=== PATIENT | male | born 1960 | race Caucasian/White ===

== ENCOUNTER → 2018-10-23 | Outpatient (CLI) | payer OTHER ==
--- NOTE | 2018-10-23 16:04 | RAD ---
Testicular sonogram with duplex evaluation Clinical indications: Testicular mass. FINDINGS: Duplex sonography of the scrotum and both testicles was performed including grayscale evaluation and color flow and waveform spectral analysis. The longitudinal and AP and transverse dimensions of the right testicle are 5.0 cm and 3.0 cm and 4.0 cm respectively. The longitudinal AP and transverse dimensions of the left testicle are 4.5 cm and 3.2 cm and 3.4 cm respectively. No testicular mass is seen. Symmetric color Doppler flow is seen and therefore no testicular torsion is evident. The epididymis on the right side is normal. Small hydrocele is seen on the right side.. There is a large cyst of the head of the epididymis on the left side measuring up to 7.4 cm in greatest dimension which accounts for a testicular mass. Small hydrocele is seen on the left side. IMPRESSION: Left testicular mass represents a 7.4 cm epididymal cyst. Electronically signed by: Albert Gonsales MD (10/23/2018 4:00 PM) [id number]
--- NOTE | 2018-10-24 17:42 | RAD ---
CT of the chest without contrast, 10/23/2018: HISTORY: Tobacco use, screening, family history of aortic aneurysm Noncontrast scans were obtained. There is minimal pleural thickening over the apices with minimal underlying linear opacities compatible with scarring. No pulmonary mass or significant nodularity is seen. There is no evidence of pleural fluid. A small low density structure is seen along the posterior wall of the left main bronchus as best visualized on axial image 245 of series #5. This probably represents a bit of mucoid debris. A small polyp cannot be excluded. The central bronchi are otherwise unremarkable. There is mild calcific plaquing of the thoracic aorta without evidence of aneurysm. Moderate scattered coronary artery calcifications are present. The heart is not enlarged. No mediastinal adenopathy is evident. Several old healed rib fractures are present on the upper left. IMPRESSION: 1. Small mural density in the left main bronchus which probably represents mucoid debris. A polyp cannot be excluded. CT follow-up is suggested. 2. No parenchymal mass or significant infiltrate. 3. Moderate coronary artery calcifications. PQRS Compliance Statement: One or more of the following individualized dose reduction techniques were utilized for this examination: 1. Automated exposure control 2. Adjustment of the mA and/or kV according to patient size 3. Use of iterative reconstruction technique Electronically signed by: Jack Ramos MD (10/24/2018 5:39 PM) [facility]
== END | disposition home or self-care (01) ==
LOC: CT 09:06
PROVIDERS: ATTEND Family Medicine
DX: N43.2 Other hydrocele (principal); N50.3 Cyst of epididymis; I25.10 Atherosclerotic heart disease of native coronary artery without angina pectoris; Z87.891 Personal history of nicotine dependence; Z82.49 Family history of ischemic heart disease and other diseases of the circulatory system
CPT/HCPCS: 71250; 76870

== ENCOUNTER 2022-04-05 13:32 | Emergency (ER) | payer OTHER ==
[~2022-04-05] VITALS: Ht 175.3 cm; Wt 77.5 kg
[2022-04-05 14:18] VITALS: BP 127/75
--- NOTE | 2022-04-05 14:34 | PHYS DOC ---
Past History Past Surgical History: Other Additional Past Surgical Histo: hernia repair; back sx General Adult EDM: Chief Complaint: PAIN ON URINATION HPI: HPI: 61-year-old male presents with urinary retention and dysuria. He has had the symptoms on and off for some time. They have been persistent in the last 2 days. Patient also had what looked like a small amount of pus come out of the end of his penis. He does not have concern for STD. He is sexually active with his . He denies fever or chills. He has had kidney stones in the past but the pain was much more intense than today. He also does not have flank pain. Review of Systems: Review of Systems: Constitutional: Denies fever or chills Eyes: Denies change in visual acuity HENT: Denies nasal congestion or sore throat Respiratory: Denies cough or shortness of breath Cardiovascular: Denies chest pain or edema GI: Denies abdominal pain, nausea, vomiting, bloody stools or diarrhea : Dysuria, urinary frequency, urinary retention. Musculoskeletal: Denies back pain or joint pain Integument: Denies rash Neurologic: Denies headache, focal weakness or sensory changes Endocrine: Denies polyuria or polydipsia Lymphatic: Denies swollen glands Psychiatric: Denies depression or anxiety Allergies: Allergies: Allergies Coded Allergies Type Severity Reaction Last Updated Verified No Known Drug Allergies 04/05/22 No Physical Exam: PE: Constitutional: Well developed, well nourished, no acute distress, non-toxic appearance. [] HENT: Normocephalic, atraumatic, bilateral external ears normal, oropharynx moist, no oral exudates, nose normal. [] Eyes: PERRLA, EOMI, conjunctiva normal, no discharge. [] Neck: Normal range of motion, no tenderness, supple, no stridor. [] Cardiovascular: Heart rate regular rhythm, no murmur [] Lungs & Thorax: Bilateral breath sounds clear to auscultation [] Abdomen: Bowel sounds normal, soft, no tenderness, no masses, no pulsatile masses. [] Skin: Warm, dry, no erythema, no rash. [] Back: No tenderness, no CVA tenderness. [] Extremities: No tenderness, no cyanosis, no clubbing, ROM intact, no edema. [] Neurologic: Alert and oriented X 3, normal motor function, normal sensory function, no focal deficits noted. [] Psychologic: Affect normal, judgement normal, mood normal. [] Current Patient Data: Vital Signs: Vital Signs Date Time Temp Pulse Resp B/P (MAP) Pulse Ox O2 Delivery O2 Flow Rate FiO2 04/05/22 14:18 97.8 86 18 127/75 (92) 99 Room Air EKG: EKG: [] Radiology/Procedures: Radiology/Procedures: [] Heart Score: C/O Chest Pain: N/A Risk Factors: Risk Factors: DM, Current or recent (<one month) smoker, HTN, HLP, family history of CAD, obesity. Risk Scores: Score 0 - 3: 2.5% MACE over next 6 weeks - Discharge Home Score 4 - 6: 20.3% MACE over next 6 weeks - Admit for Clinical Observation Score 7 - 10: 72.7% MACE over next 6 weeks - Early Invasive Strategies Course & Med Decision Making: Course & Med Decision Making Pertinent Labs and Imaging studies reviewed. (See chart for details) The patient's urinalysis is negative for infection. He likely has an enlarged prostate. I will place him on Flomax. GC chlamydia is pending. He will follow-up with his primary physician. He is stable for discharge at this time. [] Dragon Disclaimer: Dragon Disclaimer: This electronic medical record was generated, in whole or in part, using a voice recognition dictation system. Departure Departure: Impression: Primary Impression: Urinary retention Additional Impression: Dysuria Disposition: HOME / SELF CARE / HOMELESS Condition: STABLE Referrals: BEV LUNA MD (PCP) Patient Instructions: Urinary Retention, Acute, Male, [id number] Tamsulosin Hcl (FLOMAX) 0.4 Mg Cap.er.24h 1 CAP PO DAILY for low urine flow for 30 Days, #30 CAP 0 Refills Prov: ARIEL HELLER DO 04/05/22 ARIEL HELLER DO April 05, 2022 14:34
[2022-04-05 16:25] LABS: AMORPHOUS SEDIMENT,UR PRESENT /HPF; BACTERIA,URINE 0 /HPF (0-FEW); CLARITY,URINE HAZY; COLOR,URINE YELLOW; GLUCOSE,URINE NEG (NEG); NITRITE,URINE NEG (NEG); RBC,URINE OCC /HPF (0-2); SQUAMOUS EPITHELIAL CELL,UR FEW /LPF; UROBILINOGEN,URINE 0.2 mg/dL (0.2 mg/dL); WBC,URINE OCC /HPF (0-4)
[2022-04-05] MEDS ORDERED: TAMS0.4C97 PO (16:30)
== END 2022-04-05 16:52 | disposition home or self-care (01) ==
LOC: ER 13:32
DX: R30.0 Dysuria (principal); R33.9 Retention of urine, unspecified
CPT/HCPCS: 36415; 81001; 87086; 87491; 87591; 99283